=== PATIENT | male | born 1935 | race Hispanic/Latino ===

== ENCOUNTER 2016-09-22 13:14 | Observation (INO) | payer MEDICARE, BC ==
[2016-09-22 13:15] VITALS: PULSE 80
[2016-09-22 13:26] VITALS: BMI 22.5
[2016-09-22 13:42] LABS: ADD MANUAL DIFF? NO
[2016-09-22 13:46] LABS: BASO # 0.01 [, K/mm3] (0.0-2.0); BASO % 0.2 % (0.0-3.0); EOS # 0.1 (0.0-0.7); EOS % 1.9 % (1.5-5.0); GRAN # 3.24 (1.4-6.5); GRAN % 61.8 % (50.0-68.0); LYMPH # 1.5 (1.2-3.4); LYMPH % 29.2 % (22.0-35.0); MEAN CELL VOLUME 96.6 fL (80.0-105.0); MEAN CORPUSCULAR HEMOGLOBIN 32.4 pg (25.0-35.0); MEAN CORPUSCULAR HGB CONC 33.6 g/dl (31.0-37.0); MEAN PLATELET VOLUME 9.9 fl (7.0-11.0); MONO # 0.4 (0.1-0.6); MONO % 6.9 % (1.0-6.0); PLATELET COUNT 191 [, 10^3/uL] (120.0-450.0); RED CELL DISTRIBUTION WIDTH 13.6 % (11.5-14.5); WHITE BLOOD COUNT 5.2 [, 10^3/ul] (4.5-11.0)
[2016-09-22 13:54] LABS: ALB/GLOB RATIO 1.2 (1.1-1.8); ALKALINE PHOSPHATASE 42 U/L (38-133); ALT/SGPT 13 U/L (7-56); AST/SGOT 28 U/L (15-59); BILIRUBIN,TOTAL 0.9 mg/dL (0.2-1.3); BLOOD UREA NITROGEN 16 mg/dL (7-21); CALCIUM 9.8 mg/dL (8.4-10.5); CARBON DIOXIDE 26 mmol/L (21-33); CHLORIDE 101 mmol/L (98-107); GFR AFRICAN-AMERICAN > 60; GLUCOSE,RANDOM 92 mg/dL (70-110); LIPASE 149 U/L (23-300); MAGNESIUM 2.3 mg/dL (1.7-2.2); POTASSIUM 4.3 mmol/L (3.6-5.0); SODIUM 138 mmol/L (132-148); TOTAL PROTEIN 7.6 g/dL (5.8-8.3)
[2016-09-22 13:57] LABS: INR 2.42 (0.93-1.08); PARTIAL THROMBOPLASTIN TIME 37.4 Seconds (23.7-30.8)
--- NOTE | 2016-09-22 14:02 | ED PDOC ---
Arrival/HPI - General Chief Complaint: Chest Pain Time Seen by Provider: 09/22/16 13:16 Historian: Patient - History of Present Illness Narrative History of Present Illness (Text): 09/22/16 14:04 Bill Dumont is an 80 year old male who past medical history includes CABG , TAVR, and Atrial Fibrillation (on Coumadin), who presents to the ED for right sided chest discomfort and near syncope today. Patient reports he first began to feel like was going to pass out and then the right sided chest discomfort followed after. Patient denies any chest palpitations, shortness of breath, nausea, vomiting, abdominal pain, urinary/bowel changes, vision changes or other associated symptoms. PMD: Afshin Robledo MD Hoseman: William Lowery MD Time/Duration: 24 hours Symptom Onset: Sudden Activities at Onset: Light Context: Home Past Medical History - Provider Review Nursing Documentation Reviewed: Yes - Infectious Disease Hx of Infectious Diseases: None - Tetanus Immunization Tetanus Immunization: Unknown - Cardiac Hx Cardiac Disorders: Yes (CAD s/p CABG) Hx Hypertension: Yes - Pulmonary Hx Respiratory Disorders: No - Neurological Hx Neurological Disorder: No - HEENT Hx HEENT Disorder: Yes (eyeglasses) - Renal Hx Renal Disorder: No - Endocrine/Metabolic Hx Endocrine Disorders: No - Hematological/Oncological Hx Blood Disorders: No - Integumentary Hx Dermatological Disorder: No - Musculoskeletal/Rheumatological Hx Musculoskeletal Disorders: No Hx Falls: No - Gastrointestinal Hx Gastrointestinal Disorders: No - Genitourinary/Gynecological Hx Genitourinary Disorders: Yes Hx Prostate Cancer: Yes Hx Reproductive Disorders: No - Psychiatric Hx Psychophysiologic Disorder: No Hx Depression: No Hx Emotional Abuse: No Hx Physical Abuse: No Hx Substance Use: No - Surgical History Hx Coronary Artery Bypass Graft: Yes Hx Open Heart Surgery: Yes Hx Valve Replacement: Yes Other/Comment: defib - Anesthesia Hx Anesthesia: Yes Hx Anesthesia Reactions: No Hx Malignant Hyperthermia: No - Suicidal Assessment Feels Threatened In Home Enviroment: No Family/Social History - Physician Review Nursing Documentation Reviewed: Yes Family/Social History: No Known Family HX Smoking Status: Former Smoker Hx Alcohol Use: No Hx Substance Use: No Allergies/Home Meds Allergies/Adverse Reactions: Allergies No Known Allergies Allergy (Verified 04/13/16 13:48) Home Medications: Home Meds Medication Instructions Recorded Confirmed Digoxin [Lanoxin] 125 mcg PO DAILY 09/22/16 09/22/16 Midodrine [Proamatine] 10 mg PO TID 09/22/16 09/22/16 Rosuvastatin Calcium [Crestor] 20 mg PO DAILY 09/22/16 09/22/16 Warfarin Sodium [Jantoven] 4 mg PO DAILY 09/22/16 09/22/16 Review of Systems - Physician Review All systems were reviewed & negative as marked: Yes - Review of Systems Constitutional: Normal. absent: Fevers Eyes: Normal. absent: Vision Changes ENT: Normal Respiratory: Normal. absent: SOB, Cough Cardiovascular: Chest Pain (Right-Sided Chest Discomfort), Syncope (Near Syncope ) Gastrointestinal: Normal. absent: Abdominal Pain, Diarrhea, Nausea, Vomiting, Appetite Changes Genitourinary Male: Normal Musculoskeletal: Normal. absent: Back Pain, Neck Pain Skin: Normal Neurological: Normal. absent: Headache, Dizziness Endocrine: Normal Hemo/Lymphatic: Normal Psychiatric: Normal Physical Exam Vital Signs Reviewed: Yes Vital Signs Temp Pulse Resp BP Pulse Ox 09/22/16 13:28 98.1 F 70 15 121/68 100 Temperature: Afebrile Blood Pressure: Normal Pulse: Regular Respiratory Rate: Normal Appearance: Positive for: Well-Appearing, Non-Toxic, Comfortable Pain Distress: None Mental Status: Positive for: Alert and Oriented X 3 - Systems Exam Head: Present: Atraumatic, Normocephalic Pupils: Present: PERRL Extroacular Muscles: Present: EOMI Conjunctiva: Present: Normal Mouth: Present: Moist Mucous Membranes Pharnyx: Present: Normal. No: ERYTHEMA Neck: Present: Normal Range of Motion Respiratory/Chest: Present: Clear to Auscultation, Good Air Exchange. No: Respiratory Distress, Accessory Muscle Use Cardiovascular: Present: Regular Rate and Rhythm, Murmurs, Normal S1, S2 Abdomen: Present: Normal Bowel Sounds. No: Tenderness, Distention, Peritoneal Signs Neurological: Present: GCS=15, CN II-XII Intact, Speech Normal, Motor Func Grossly Intact, Normal Sensory Function, Normal Cerebellar Funct, Norm Deep Tendon Reflexes, Memory Normal, Normal 2Pt Descrimination Skin: Present: Warm, Dry, Normal Color. No: Rashes Psychiatric: Present: Alert, Oriented x 3, Normal Insight, Normal Concentration Medical Decision Making ED Course and Treatment: 09/22/16 13:24 Impression: 80 year old male complaining of right sided chest discomfort and reports near syncope. Differential Diagnosis include but are not limited to: CHF exacerbation vs. Unstable angina vs. Vascular Insufficiency Plan: -- Brain CT -- Chest X-ray -- EKG -- Labs, UA, cardiac enzymes -- Reassess and disposition Prior Visits: Notes and results from previous visits were reviewed. Patient was last seen in the ED on 05/06/16 for Chest pain related symptoms. Progress Notes: 09/22/16 14:12 Chest x-ray read by me shows no changes compared to previous Chest X-ray. 09/22/16 14:49 Procedure: CT HEAD WITHOUT CONTRAST. Dictator: LESLIE MANDUJANO MD Impression: No acute intracranial abnormality. Old lacunar infarction in the right caudate head. Mild chronic microangiopathic changes and mild age-related global parenchymal volume loss. 09/22/16 15:45 Patient with significant cardiac history with near syncope - will place on obs on tele - discussed with Dr. Urbina, covering Dr. Robledo. - Lab Interpretations Lab Results: 09/22/16 13:40 09/22/16 13:40 Lab Results 09/22/16 13:40: WBC 5.2, RBC 4.35, Hgb 14.1, Hct 42.0, MCV 96.6, MCH 32.4, MCHC 33.6, RDW 13.6, Plt Count 191, MPV 9.9, Gran % 61.8, Lymph % (Auto) 29.2, [place] % (Auto) 6.9 H, Eos % (Auto) 1.9, Baso % (Auto) 0.2, Gran # 3.24, Lymph # 1.5, [place] # 0.4, Eos # 0.1, Baso # 0.01, PT 26.1 H, INR 2.42 H, APTT 37.4 H, Sodium 138, Potassium 4.3, Chloride 101, Carbon Dioxide 26, Anion Gap 15, BUN 16, Creatinine 0.8, Est GFR ( Amer) > 60, Est GFR (Non-Af Amer) > 60, Random Glucose 92, Calcium 9.8, Magnesium 2.3 H, Total Bilirubin 0.9, AST 28, ALT 13, Alkaline Phosphatase 42, Lactate Dehydrogenase 611, Total Creatine Kinase 61, Troponin I < 0.01 D, NT-Pro-B Natriuret Pep 6310 H, Total Protein 7.6, Albumin 4.1, Globulin 3.4, Albumin/Globulin Ratio 1.2, Lipase 149, Digoxin 0.4 L 09/22/16 13:29: Urine Color Yellow, Urine Appearance Clear, Urine pH 8.5, Ur Specific [place] 1.010, Urine Protein Negative, Urine Glucose (UA) Negative, Urine Ketones Negative, Urine Blood Negative, Urine Nitrate Negative, Urine Bilirubin Negative, Urine Urobilinogen 1.0 H, Ur Leukocyte Esterase Negative I have reviewed the lab results: Yes - RAD Interpretation Narrative RAD Interpretations (Text): 09/22/16 14:49 Procedure: CT HEAD WITHOUT CONTRAST. Dictator: LESLIE MANDUJANO MD FINDINGS: HEMORRHAGE: There is no acute intracranial hemorrhage. BRAIN: There is an old lacunar infarction in the right caudate head. There are mild chronic microangiopathic changes. There is no mass, mass effect or abnormal extra-axial fluid collection. VENTRICLES: There is mild age-related global parenchymal volume loss and proportionate enlargement of the ventricles and cortical sulci. CALVARIUM: The skull base and calvarium are normal. PARANASAL SINUSES: Predominantly clear. MASTOID AIR CELLS: Predominantly clear. OTHER FINDINGS: None. Impression: No acute intracranial abnormality. Old lacunar infarction in the right caudate head. Mild chronic microangiopathic changes and mild age-related global parenchymal volume loss. Radiology Orders: 09/22/16 13:29 CHEST PORTABLE [RAD] Stat 09/22/16 13:30 Brain [HEAD W/O CONTRAST] [CT] Stat Engagement Lead: Radiologist - EKG Interpretation EKG Interpretation (Text): 09/22/16 15:43 Paced (ventricular) pacing @ 71 with PVC with LBBB pattern. - Medication Orders Current Medication Orders: Sodium Chloride (Sodium Chloride 0.9%) 1,000 mls @ 75 mls/hr IV .[id number] STA Stop: 09/23/16 04:24 - Scribe Statement The provider has reviewed the documentation as recorded by the Scribe Sharee Esposito Provider Attestation: All medical record entries made by the Scribe were at my direction and personally dictated by me. I have reviewed the chart and agree that the record accurately reflects my personal performance of the history, physical exam, medical decision making, and the department course for this patient. I have also personally directed, reviewed, and agree with the discharge instructions and disposition. Disposition/Present on Arrival - Present on Arrival Any Indicators Present on Arrival: No History of DVT/PE: No History of Uncontrolled Diabetes: No Urinary Catheter: No History of Decub. Ulcer: No History Surgical Site Infection Following: None - Disposition Have Diagnosis and Disposition been Completed?: Yes Diagnosis: Near syncope Disposition: HOSPITALIZED Disposition Time: 15:05 Patient Plan: Observation, Telemetry Condition: FAIR
[2016-09-22 14:06] LABS: TROPONIN I < 0.01 ng/mL
--- NOTE | 2016-09-22 14:13 | RAD ---
HISTORY: near syncope, R side chest pain COMPARISON: 05/06/2016 FINDINGS: LUNGS: The lungs are clear. There is no focal consolidation. PLEURA: No significant pleural effusion identified, no pneumothorax apparent. CARDIOVASCULAR: There is mild cardiomegaly. Status post CABG and aortic valve replacement. There is stable position of the dual lead left-sided transvenous permanent pacing device. OSSEOUS STRUCTURES: No significant abnormalities. VISUALIZED UPPER ABDOMEN: Normal. OTHER FINDINGS: None. IMPRESSION: No active pulmonary disease. Mild cardiomegaly.
[2016-09-22 14:28] LABS: PH,URINE 8.5 (4.7-8.0); URINE BILIRUBIN NEGATIVE (NEGATIVE); URINE BLOOD NEGATIVE (NEGATIVE); URINE GLUCOSE (UA) NEGATIVE (NEGATIVE); URINE KETONE NEGATIVE (NEGATIVE); URINE LEUKOCYTE ESTERASE NEGATIVE Leu/uL (NEGATIVE); URINE PROTEIN NEGATIVE mg/dL (<30 mg/dL)
--- NOTE | 2016-09-22 14:50 | CT ---
PROCEDURE: CT HEAD WITHOUT CONTRAST. HISTORY: near syncope, headache COMPARISON: None available. TECHNIQUE: Axial computed tomography images were obtained through the head/brain without intravenous contrast. Radiation dose: Total exam DLP = wound 725.84 mGy-cm. FINDINGS: HEMORRHAGE: There is no acute intracranial hemorrhage. BRAIN: There is an old lacunar infarction in the right caudate head. There are mild chronic microangiopathic changes. There is no mass, mass effect or abnormal extra-axial fluid collection. VENTRICLES: There is mild age-related global parenchymal volume loss and proportionate enlargement of the ventricles and cortical sulci. CALVARIUM: The skull base and calvarium are normal. PARANASAL SINUSES: Predominantly clear. MASTOID AIR CELLS: Predominantly clear. OTHER FINDINGS: None. IMPRESSION: No acute intracranial abnormality. Old lacunar infarction in the right caudate head. Mild chronic microangiopathic changes and mild age-related global parenchymal volume loss.
[2016-09-22 14:51] LABS: URINE APPEARANCE CLEAR (CLEAR); URINE COLOR YELLOW (YELLOW)
[2016-09-22] MEDS ORDERED: Sodium Chloride 0.9% 1,000 ML IV STA (15:05)
--- NOTE | 2016-09-22 19:11 | CP.PCM.HP ---
History of Present Illness - History of Present Illness History of Present Illness: Bill Dumont is an 80 year old male who past medical history includes CABG , TAVR, and Atrial Fibrillation (on Coumadin), who presents to the ED for right sided chest discomfort and near syncope today. Patient reports he first began to feel like was going to pass out and then the right sided chest discomfort followed after. On exam pt. states that he is in no pain and his pain earlier was 2/10 at its worse. Patient denies any chest palpitations, shortness of breath, nausea, vomiting, abdominal pain, urinary/bowel changes, vision changes or other associated symptoms. Present on Admission - Present on Admission Any Indicators Present on Admission: No Review of Systems - Constitutional Constitutional: Headache. absent: Chills, Fever - EENT Eyes: Blurred Vision, Change in Vision Ears: absent: Decreased Hearing Nose/Mouth/Throat: absent: Nasal Congestion, Nasal Discharge - Cardiovascular Cardiovascular: Chest Pain, Lightheadedness. absent: Dyspnea, Palpitations - Respiratory Respiratory: absent: Cough, Wheezing, Chest Congestion - Gastrointestinal Gastrointestinal: absent: Abdominal Pain, Diarrhea, Nausea, Vomiting - Genitourinary Genitourinary: absent: Dysuria, Flank Pain - Musculoskeletal Musculoskeletal: absent: Back Pain, Numbness, Tingling - Integumentary Integumentary: absent: Rash, Skin Pain, Wounds - Neurological Neurological: Headaches. absent: Abnormal Hearing, Abnormal Speech, Behavioral Changes, Weakness - Endocrine Endocrine: absent: Fatigue, Palpitations, Polyuria Past Patient History - Infectious Disease Hx of Infectious Diseases: None - Tetanus Immunizations Tetanus Immunization: Unknown - Past Medical History & Family History Past Medical History?: Yes - Past Social History Smoking Status: Former Smoker Chewing Tobacco Use: No Cigar Use: No Alcohol: None Drugs: Denies Home Situation {Lives}: With Family - CARDIAC Hx Cardiac Disorders: Yes (CAD s/p CABG) Hx Hypertension: Yes - PULMONARY Hx Respiratory Disorders: No - NEUROLOGICAL Hx Neurological Disorder: No - HEENT Hx HEENT Problems: Yes (eyeglasses) - RENAL Hx Chronic Kidney Disease: No - ENDOCRINE/METABOLIC Hx Endocrine Disorders: No - HEMATOLOGICAL/ONCOLOGICAL Hx Blood Disorders: No - INTEGUMENTARY Hx Dermatological Problems: No - MUSCULOSKELETAL/RHEUMATOLOGICAL Hx Musculoskeletal Disorders: No Hx Falls: No - GASTROINTESTINAL Hx Gastrointestinal Disorders: No - GENITOURINARY/GYNECOLOGICAL Hx Genitourinary Disorders: Yes Hx Prostate Cancer: Yes Hx Reproductive Disorders: No - PSYCHIATRIC Hx Psychophysiologic Disorder: No Hx Depression: No Hx Emotional Abuse: No Hx Physical Abuse: No Hx Substance Use: No - SURGICAL HISTORY Hx Coronary Artery Bypass Graft: Yes Hx Open Heart Surgery: Yes Hx Valve Replacement: Yes Other/Comment: defib - ANESTHESIA Hx Anesthesia: Yes Hx Anesthesia Reactions: No Hx Malignant Hyperthermia: No Meds Allergies/Adverse Reactions: Allergies Allergy/AdvReac Type Severity Reaction Status Date / Time No Known Allergies Allergy Verified 04/13/16 13:48 Physical Exam - Constitutional Appears: Non-toxic, No Acute Distress - Head Exam Head Exam: ATRAUMATIC, NORMOCEPHALIC - Eye Exam Eye Exam: EOMI, Normal appearance - ENT Exam ENT Exam: Mucous Membranes Moist - Neck Exam Neck exam: Positive for: Normal Inspection - Respiratory Exam Respiratory Exam: Clear to Auscultation Bilateral, NORMAL BREATHING PATTERN. absent: Rhonchi, Wheezes - Cardiovascular Exam Cardiovascular Exam: Irregular Rhythm, +S1, +S2 - GI/Abdominal Exam GI & Abdominal Exam: Normal Bowel Sounds, Soft. absent: Organomegaly, Rebound, Tenderness - Extremities Exam Extremities exam: Negative for: joint swelling, pedal edema - Neurological Exam Neurological exam: Alert, CN II-XII Intact, Oriented x3 - Psychiatric Exam Psychiatric exam: Normal Affect, Normal Mood - Skin Skin Exam: Intact, Normal Color, Warm Additional comments: left hand bruise from possible needle stick Results - Vital Signs Recent Vital Signs: Last Vital Signs Temp 97.8 F 09/22/16 17:10 Pulse 72 09/22/16 17:10 Resp 18 09/22/16 17:10 BP 122/75 09/22/16 17:10 Pulse Ox 100 09/22/16 17:10 - Labs Result Diagrams: 09/22/16 13:40 09/22/16 13:40 Assessment & Plan - Assessment and Plan (Free Text) Assessment: 80M with significant cardiac history presents with chest pain and lightheadedness. Plan: Chest Pain -- Cardio Consult - Dr. Lowery -- Chest X-ray -no change from previous -mild cardiomegaly -no active pulmonary dz -- EKG -Paced Vent pacing @71bpm w/PVC's and LBBB pattern -- Labs, cardiac enzymes -trops x1 negative, #2,3 ordered -BNP elevated 6310 -- Afib Coumadin 4mg daily Coags -- HLD Lipitor 80mg din -- CHF Digoxin .125ucg every other day Lightheadedness -- Neuro Consult - Dr. Gianni Holder -- Hypotension/Dizziness Midodrine 10mg daily -- Head CT -No acute intracranial abnormality. Old lacunar infarction in the right caudate head. -Mild chronic microangiopathic changes and mild age-related global parenchymal volume loss. -- Orthostatics ordered -- Neurochecks PPX --DVT SCD's --GI Protonix - Date & Time Date: 09/22/16 Time: 06:00
[2016-09-22] MEDS ORDERED: Influenza Vaccine 45 MCG/0.5 ml IM ONE (20:36)
[2016-09-22] MEDS ORDERED: Pneumococcal 23-Valent Vaccine IM ONE (20:36)
[2016-09-22 21:29] LABS: TROPONIN I < 0.01 ng/mL
[2016-09-23 03:34] VITALS: TEMP 97.9
[2016-09-23 06:36] VITALS: O2SAT 97
[2016-09-23 06:52] LABS: ADD MANUAL DIFF? NO
[2016-09-23 07:09] LABS: BASO # 0.01 [, K/mm3] (0.0-2.0); BASO % 0.2 % (0.0-3.0); EOS # 0.1 (0.0-0.7); EOS % 2.2 % (1.5-5.0); GRAN # 3.28 (1.4-6.5); GRAN % 59.1 % (50.0-68.0); HEMATOCRIT 40.1 % (42.0-52.0); INR 2.21 (0.93-1.08); LYMPH # 1.7 (1.2-3.4); LYMPH % 30.8 % (22.0-35.0); MEAN CELL VOLUME 96.4 fL (80.0-105.0); MEAN CORPUSCULAR HEMOGLOBIN 32.7 pg (25.0-35.0); MEAN CORPUSCULAR HGB CONC 33.9 g/dl (31.0-37.0); MEAN PLATELET VOLUME 9.8 fl (7.0-11.0); MONO # 0.4 (0.1-0.6); MONO % 7.7 % (1.0-6.0); PLATELET COUNT 182 [, 10^3/uL] (120.0-450.0); RED CELL DISTRIBUTION WIDTH 13.5 % (11.5-14.5); WHITE BLOOD COUNT 5.6 [, 10^3/ul] (4.5-11.0)
[2016-09-23 07:14] LABS: ALB/GLOB RATIO 1.1 (1.1-1.8); ALKALINE PHOSPHATASE 47 U/L (38-133); ALT/SGPT 12 U/L (7-56); AST/SGOT 30 U/L (15-59); BLOOD UREA NITROGEN 13 mg/dL (7-21); CALCIUM 9.4 mg/dL (8.4-10.5); CARBON DIOXIDE 26 mmol/L (21-33); CHLORIDE 103 mmol/L (98-107); GFR AFRICAN-AMERICAN > 60; GLUCOSE,RANDOM 89 mg/dL (70-110); SODIUM 138 mmol/L (132-148); TOTAL PROTEIN 7.2 g/dL (5.8-8.3)
[2016-09-23 07:33] LABS: TROPONIN I < 0.01 ng/mL
--- NOTE | 2016-09-23 08:34 | CON ---
DATE: 09/23/2016 HISTORY OF PRESENT ILLNESS: The patient is an 80-year-old male who had an episode of transient dizzi ness while getting up too fast after eating. In addition, he developed focal chest discomfort on the right side, which is completely resolved. PAST MEDICAL HISTORY: Notable for history of aortic valve replacement through TAVR, history of dilat ed cardiomyopathy, CAD. The patient is currently on Coumadin for atrial fibrillation, which has also been treated with a pace maker/defibrillator. The patient is feeling well. No shortness of breath, no chest pain. SOCIAL HISTORY: Does not smoke and participates with physical therapy and cardiac rehabilitation. REVIEW OF SYSTEMS: A 14-point was reviewed in detail. No cardiac symptomatology is noted. PHYSICAL EXAMINATION: VITAL SIGNS: Blood pressure is 109/60, the heart rate is in the 60s. There are no orthostatic rowe es. NECK: Negative JVD. LUNGS: Without rales. HEART: Reveals S1, S2 with a II/ systolic ejection murmur. EXTREMITIES: Without edema. EKG is a paced rhythm. LABORATORIES: Hemoglobin is 13.6. Troponins are negative x 3. IMPRESSION: 1. Transient dizziness, which is now resolved. 2. Atypical chest pain, which is resolved. 3. No evidence for acute coronary syndrome. 4. Dilated cardiomyopathy. 5. History of aortic valve replacement. 6. Pacemaker placement. 7. History of defibrillator placement. Given these findings, the patient's cardiovascular status is stable. The patient requests to go home . The patient can go home from a cardiac perspective. William Lowery MD cc: [id number] TT: 09/23/2016 08:33:31 Confirmation # [id number] Dictation # [id number]
[2016-09-23] MEDS ORDERED: Digoxin 0.05 mg/mL Elixir 5mL PO SCH (10:00)
--- NOTE | 2016-09-23 11:24 | HP ---
I saw him in bed in room 277 at [facility]. He is a nice 80-year-old man who presents wi th a history of right-sided chest discomfort, almost feeling faint and passing out. His called 911 and took him to the Emergency Room. No shortness of breath or left-sided chest pain. PAST MEDICAL HISTORY: CABG, TAVR, atrial fibrillation on Coumadin. He wears eyeglasses. He has pro state cancer history, CABG, valve replacement, defibrillator in place. FAMILY HISTORY: Hypertension in the family. SOCIAL HISTORY: Former smoker, no alcohol, no drugs. ALLERGIES: No known drug allergies. MEDICATIONS: Takes Lanoxin, ProAmatine, Crestor, warfarin. REVIEW OF SYSTEMS: No acute vision changes or hearing changes, has felt lightheaded and dizzy. No s ore throat. No chest pain on the left, but there is right-sided chest discomfort, but no pressure, i t is gone now. No nausea, vomiting, constipation, diarrhea. No back pain. No skin issues. No head ache or dizziness, no depression or anxiety. PHYSICAL EXAMINATION: VITAL SIGNS: 98.1 temp, 70 pulse, 15 respiratory rate, 121/68 blood pressure, 100% O2 sat on room ai r. HEENT: Head is atraumatic, normocephalic. Throat is moist. NECK: Supple. GENERAL: Well appearing, nontoxic, alert and oriented x 3. Extraocular muscles are intact. Pupils equal, reactive to light. HEART: Regular rate. Normal S1, S2. LUNGS: Decreased breath sounds but clear to auscultation. No wheezes, rhonchi or rales. ABDOMEN: Soft, nontender, positive bowel sounds, no guarding, no rebound. No CVA tenderness. NEUROLOGIC: GCS is 15. Cranial nerves II-XII grossly intact. Speech is normal. No neurological de ficit. Can move both arms and extremities well. No numbness or tingling. SKIN: Warm and dry. LABORATORY DATA: He has a 5.6 white count, 13.6 hemoglobin, 40.1 hematocrit with 182, platelets. 2. 2 INR. 138 sodium, potassium is 4, BUN 13, creatinine 0.7, GFR is greater than 60, sugar is 89, calc ium is 0.4. Total bili is 1, AST is 30, ALT is 12, alkaline phosphatase 47. Lactic dehydrogenase 56 7. Troponins x 3 negative. BNP was 6310. Total protein 7.2, lipase is 1.9. Urine is clean. Toxic ology: Digoxin was 0.4. He was seen by Dr. Lowery and he felt cardiologically h can be discharged. CAT scan of the head showed old, but nothing acute. Chest x-ray was also no acute disease. There is a consult for neurology. Waiting for neurology to see him, if it is okay with neurology, he will be discharged today. He almas l go home on his regular medications; his warfarin, digoxin, Lipitor, ProAmatine. He is here for near syncope and right-sided chest pain which resolved. I will discuss with the nurse . I will put the discharge in if it is okay with neurology. Followup with Dr. Robledo in the next 24-48 hours. He will call if any other issues. I am hoping he will be discharged later today as per neurology. Carl Urbina DO cc: [id number] TT: 09/23/2016 11:23:29 harriet
[2016-09-23 14:01] VITALS: RESP 20
--- NOTE | 2016-09-23 18:31 | CARD ---
APPROVED REPORT EKG Measurement Heart [id number] <Conclusion> Electronic ventricular pacemaker
[2016-09-23 20:30] VITALS: BP 120/78; PULSE 66
--- NOTE | 2016-09-24 02:15 | CON ---
DATE: 09/23/2016 HISTORY OF PRESENT ILLNESS: This is an 80-year-old male with a past medical history of CABG and atri al and aortic valve replacement on Coumadin. The patient had finished his lunch was sitting on a tab le, felt like passing out, did not fall and called 911 and brought him here. PAST MEDICAL HISTORY: As above. SOCIAL HISTORY: Does not smoke, does not drink. ALLERGIES: No known drug allergy. HOME MEDICATIONS: Digoxin and warfarin and also midodrine. PHYSICAL EXAMINATION: HEENT: Normocephalic, atraumatic. NECK: Supple. NEUROLOGIC: Alert, awake, oriented x 3. No aphasia. Cranial nerves II through XII were tested. Pu pils reactive. EOM intact. Visual hodge full. No facial asymmetry. Tongue midline. MOTOR EXAMIN ATION: Moves all the extremities equally. Tone normal. Deep tendon reflexes 1+. Both plantars are downgoing. Sensory appears intact. Cerebellar gait normal and gait was also normal. IMPRESSION AND PLAN: Syncope, less likely seizure and the workup is negative so far. We will follow up. Nagi Holder MD cc: [id number] TT: 09/24/2016 02:15:03 Confirmation # [id number] Dictation # [id number] sofia
== END 2016-09-23 19:00 | disposition home or self-care (01) ==
LOC: ED 13:14 → ERH 15:07 → 2RSO 17:16
PROVIDERS: ADMIT Internal Medicine; ATTEND Internal Medicine
DX: R55 Syncope and collapse (principal); R07.9 Chest pain, unspecified; R42 Dizziness and giddiness; I25.10 Atherosclerotic heart disease of native coronary artery without angina pectoris; Z95.1 Presence of aortocoronary bypass graft; I48.91 Unspecified atrial fibrillation; Z79.01 Long term (current) use of anticoagulants; E78.5 Hyperlipidemia, unspecified; Z95.0 Presence of cardiac pacemaker; Z95.2 Presence of prosthetic heart valve; I50.9 Heart failure, unspecified; I42.8 Other cardiomyopathies
CPT/HCPCS: 36415; 70450; 71010; 80053; 80162; 81003; 82550; 83615; 83690; 83735; 83880; 84484; 85025; 85610; 85730; 93005; 99285; G0378; J7040

== ENCOUNTER 2018-09-25 08:18 | Outpatient (CLI) | payer MEDICARE, BC | END 2018-09-25 08:19 | disposition home or self-care (01) | LOC: RAD 08:18 | DX: I25.10 Atherosclerotic heart disease of native coronary artery without angina pectoris (principal) ==